=== PATIENT | male | born 1960 | race Caucasian/White ===

== ENCOUNTER 2017-06-18 13:22 | Emergency (ER) | payer OTHER ==
[2017-06-18 13:28] VITALS: BP 104/70
--- NOTE | 2017-06-18 13:38 | UC ---
Cardiac HPI - HPI Summary HPI Summary: Left chest pain since Monday worse with getting out of bed, deep breaths and with palpation. NO cough or sob. He denies sob or air hunger. He denies calf pain or swelling. he has no prior hx of heart disease, vascular disease, or PE. He is a 1/2 ppd smoker. He has had no injury. He did have a uri about 1mo ago. It does not hurt more to walk or exert. - History of Current Complaint Chief Complaint: UCChestPain Stated Complaint: CHEST PAIN Time Seen by Provider: 06/18/17 13:25 Hx Obtained From: Patient Onset/Duration: Gradual Onset, Lasting Days Timing: Constant Initial Severity: Moderate Current Severity: Moderate Chest Pain Location: Discrete at: - Left anterior chest. Character: Sharp/Stabbing Aggravating Factor(s): Movement, Deep Breaths Alleviating Factor(s): Position Associated Signs & Symptoms: Positive: Chest Pain. Negative: Numbness, Tingling , SOB, Swelling, Syncope, Fever, Diaphoresis, Nausea/Vomiting, Palpitations, Hemoptysis, Calf Pain/Swelling - Risk Factors Pulmonary Embolism Risk Factors: Smoking - Allergy/Home Medications Allergies/Adverse Reactions: Allergies Allergy/AdvReac Type Severity Reaction Status Date / Time No Known Allergies Allergy Verified 06/18/17 13:28 Home Medications: Home Medications Zolpidem TAB* [Ambien TAB*] 10 mg PO BEDTIME PRN 06/18/17 [History Confirmed 04/25] PMH/Surg Hx/FS Hx/Imm Hx Previously Healthy: No - smoker. - Surgical History Surgical History: None - Family History Known Family History: Positive: Other - NO FH of DVT or PE. - Social History Alcohol Use: None Substance Use Type: None Smoking Status (MU): Heavy Every Day Tobacco Smoker Type: Cigarettes Amount Used/How Often: 1/2 ppd Review of Systems Cardiovascular: Chest Pain All Other Systems Reviewed And Are Negative: Yes Physical Exam Triage Information Reviewed: Yes Appearance: Well-Appearing - Smiling and pleasant., No Pain Distress, Well- Nourished Vital Signs: Initial Vital Signs Temp 98.6 F 06/18/17 13:25 Pulse 66 06/18/17 13:25 Resp 16 06/18/17 13:25 BP 104/70 06/18/17 13:25 Pulse Ox 98 06/18/17 13:25 Vital Signs Reviewed: Yes Eyes: Positive: Conjunctiva Clear ENT: Positive: TMs normal, Uvula midline. Negative: TM bulging, TM dull, TM red , Tonsillar swelling, Tonsillar exudate, Muffled voice Neck: Positive: Supple, Nontender, No Lymphadenopathy. Negative: Nuchal Rigidity Respiratory Exam: Other - Obvious tenderness anterior left chest with palpation. No crepitus of the chest or anterior neck. Respiratory: Positive: Lungs clear, Normal breath sounds, No respiratory distress, No accessory muscle use. Negative: Chest non-tender, Respiratory distress, Decreased breath sounds, Accessory muscle use, Crackles, Rhonchi, Stridor Cardiovascular: Positive: RRR, No Murmur, Pulses Normal, Brisk Capillary Refill Abdomen Description: Positive: Nontender, No Organomegaly, Soft. Negative: Distended, Guarding Musculoskeletal: Positive: Strength Intact, ROM Intact, No Edema Neurological: Positive: Alert, Muscle Tone Normal. Negative: Fatigued Psychological: Positive: Age Appropriate Behavior Skin: Negative: rashes Diagnostics - EKG Cardiac Rate: NL Cardiac Rhythm: Sinus: Normal Ectopy: None ST Segment: Normal - Assessment/Plan Course Of Treatment: This is most c/w chest wall pain. It hurts more with palpation and position. Exertion has no effect. We will eval for pericarditis on EKG and pneumothorax on chest x ray. It does not feel better with leaning forward. We will d/c if these are negative. - Differential Diagnoses - Chest Pain Differential Diagnosis/HQI/PQRI: Acute DC, ACS, Angina, Aortic Aneurysm, CHF, GI Disease, Lower Respiratory Infection, Pulmonary Edema, Pulmonary Embolism - Differential Diagnoses - Hypertension Differential Diagnosis/HQI PQRI: AAA, Angina - Clinical Impression Provider Diagnoses: chest wall pain. Discharge - Discharge Plan Condition: Good Disposition: HOME Prescriptions: Naproxen TAB* [Naprosyn 375 mg TAB*] 375 mg PO Q8H #21 tab Patient Education Materials: Chest Wall Pain (ED) Referrals: No Primary Care Phys,NOPCP [Medical Doctor] - Additional Instructions: REturn tothe ED for any worsening.
--- NOTE | 2017-06-18 14:13 | RAD ---
INDICATION: Pleuritic LEFT chest pain. Cough, shortness of breath. History of tobacco use. Onset of symptoms on Monday. COMPARISON: May 07, 2008 RIGHT rib series. TECHNIQUE: Dual energy PA and routine lateral views of the chest were obtained. REPORT: Bilateral symmetric nipple shadows noted. Clear lungs and pleural spaces. Negative for pneumothorax. Elevated lung volumes. The heart, pulmonary vasculature, and mediastinal contours are unremarkable. No rib fracture or suspicious osseous lesion evident. IMPRESSION: Stigmata of obstructive lung disease. No acute pulmonary or cardiac process evident.
== END 2017-06-18 14:36 | disposition home or self-care (01) ==
LOC: UCCORT 13:22
DX: R07.89 Other chest pain (principal); J44.9 Chronic obstructive pulmonary disease, unspecified; R00.1 Bradycardia, unspecified; F17.210 Nicotine dependence, cigarettes, uncomplicated
CPT/HCPCS: 71020; 93005; 99202; G0463

== ENCOUNTER 2019-02-07 12:19 | Emergency (ER) | payer OTHER ==
[2019-02-07 12:53] VITALS: BP 105/62
--- NOTE | 2019-02-07 13:25 | UC ---
- HPI Summary HPI Summary: 58 yo male with swollen/tender right breast x 2 weeks feels fatigued and weak no ETOH no wt loss no nipple d/c no fhx breast ca - History of Current Complaint Breast Chief Complaint: Pain, Right Onset/Duration: Started Weeks Ago Timing: Constant Breast Associated Signs/Symptoms: Other: - "lump under nipple" - Allergy/Home Medications Allergies/Adverse Reactions: Allergies Allergy/AdvReac Type Severity Reaction Status Date / Time No Known Allergies Allergy Verified 02/07/19 12:43 Home Medications: Home Medications NK [No Home Medications Reported] 02/07/19 [History Confirmed 02/07/19] PMH/Surg Hx/FS Hx/Imm Hx Previously Healthy: Yes - Surgical History Surgical History: None - Family History Known Family History: Positive: Hypertension, Other - NO FH of DVT or PE. - Social History Alcohol Use: None Substance Use Type: None Smoking Status (MU): Heavy Every Day Tobacco Smoker Type: Cigarettes Amount Used/How Often: 1/2 ppd Household Exposure Type: Cigarettes Review of Systems All Other Systems Reviewed And Are Negative: Yes Constitutional: Positive: Fatigue Skin: Positive: Negative Eyes: Positive: Negative ENT: Positive: Negative Respiratory: Positive: Negative Cardiovascular: Positive: Negative Gastrointestinal: Positive: Negative Genitourinary: Positive: Negative Motor: Positive: Negative Neurovascular: Positive: Negative Musculoskeletal: Positive: Negative Neurological: Positive: Negative Psychological: Positive: Negative Physical Exam Triage Information Reviewed: Yes Appearance: Well-Appearing, No Pain Distress, Well-Nourished Vital Signs: Initial Vital Signs Temp 97.1 F 02/07/19 12:45 Pulse 53 02/07/19 12:45 Resp 16 02/07/19 12:45 BP 105/62 02/07/19 12:45 Pulse Ox 98 02/07/19 12:45 Vital Signs Reviewed: Yes Eyes: Positive: Conjunctiva Clear ENT: Positive: Hearing grossly normal. Negative: Nasal congestion, Nasal drainage, Trismus, Muffled voice, Hoarse voice Dental: Negative: Abscess @ Neck: Positive: Supple, Nontender, No Lymphadenopathy Respiratory: Positive: Lungs clear, Normal breath sounds, No respiratory distress, No accessory muscle use Cardiovascular: Positive: RRR, No Murmur Musculoskeletal: Positive: ROM Intact, No Edema Neurological: Positive: Alert Skin Exam: Other - paplable enlarged breast tissue below right nipple, no d/c Breast Pain Course/Dx - Course Course Of Treatment: advised patient that this needed further evaluation and that breast CA was in the differential - Diagnoses Provider Diagnoses: Gynecomastia, male Discharge - Sign-Out/Discharge Documenting (check all that apply): Patient Departure All imaging exams completed and their final reports reviewed: No Studies - Discharge Plan Condition: Stable Disposition: HOME Patient Education Materials: Gynecomastia (ED) Referrals: Yeny Ponce MD [Medical Doctor] - As Soon As Possible Additional Instructions: you have swollen breast tissue You may need it biopsied (surgically removed) Please call surgeon and make appt - Billing Disposition and Condition Condition: STABLE Disposition: Home
[2019-02-07 19:03] LABS: ABS Basophils 0.1 10^3/ul (0-0.2); ABS Eosinophils 0.1 10^3/ul (0-0.6); ABS Lymphocytes 1.5 10^3/ul (1.0-4.8); ABS Monocytes 0.8 10^3/ul (0-0.8); ABS Neutrophils 4.3 10^3/ul (1.5-7.7); Eosinophil % 0.9 %; Hematocrit 43 % (42-52); Hemoglobin 15.1 g/dL (14.0-18.0); Lymphocyte % 22.5 %; Mean Corpuscular HGB Conc 35 g/dL (31-36); Mean Corpuscular Hemoglobin 31 pg (27-31); Mean Corpuscular Volume 88 fL (80-94); Mean Platelet Volume 7.7 fL (7.4-10.4); Nucleated Red Blood Cells % 0.1; Platelet Count 224 10^3/uL (150-450); Red Blood Count 4.88 10^6 /uL (4.18-5.48); Red Cell Distribution Width 14 % (10-15); White Blood Count 6.7 10^3/uL (3.5-10.8)
[2019-02-07 19:29] LABS: TSH (Thyroid Stimulating Horm) 2.05 mcIU/mL (0.34-5.60)
[2019-02-07 19:59] LABS: Hepatitis C Antibody Negative (Negative)
[2019-02-07 21:42] LABS: HIV 4th Generation Negative (Negative)
[2019-02-07 22:29] LABS: Albumin 4.6 g/dL (3.2-5.2); Calcium 9.3 mg/dL (8.6-10.3); Potassium 3.9 mmol/L (3.5-5.0); Total Bilirubin 0.5 mg/dL (0.2-1.0)
[2019-02-07 22:35] LABS: Albumin/Globulin Ratio 1.8 (1-3); BUN/Creatinine Ratio 11.6 (8-20); EGFR African American 110.1 (>60); Globulin 2.6 g/dL (2-4); Total Protein 7.2 g/dL (6.4-8.9)
== END 2019-02-07 13:42 | disposition home or self-care (01) ==
LOC: UCCORT 12:19
DX: N62 Hypertrophy of breast (principal); F17.210 Nicotine dependence, cigarettes, uncomplicated
CPT/HCPCS: 36415; 80053; 84443; 85025; 86803; 87389; 99211; G0463